=== PATIENT | female | born 1980 | race Hispanic/Latino ===

== ENCOUNTER 2017-06-03 22:16 | Inpatient (IN) | payer BC, OTHER ==
[2017-06-03 22:55] VITALS: BMI 25.4
[2017-06-03] MEDS ORDERED: Bicitra 30 ML UD PO ONE (22:55)
[2017-06-03 23:43] LABS: BASO # 0.1 K/uL (0.0-0.2); BASO % 0.6 % (0.0-2.0); EOS # 0.1 K/uL (0.0-0.7); EOS % 1.2 % (0.0-4.0); HEMATOCRIT 37.1 % (34.0-47.0); LYMPH # 1.8 K/uL (1.0-4.3); LYMPH % 17.7 % (20.0-40.0); MEAN CELL VOLUME 78.2 fl (81.0-99.0); MEAN CORPUSCULAR HEMOGLOBIN 24.8 pg (27.0-31.0); MEAN CORPUSCULAR HGB CONC 31.8 g/dL (33.0-37.0); MEAN PLATELET VOLUME 9.2 fl (7.2-11.7); MONO # 0.7 K/uL (0.0-0.8); MONO % 7.2 % (0.0-10.0); NEUT # 7.3 K/uL (1.8-7.0); NEUT % 73.3 % (50.0-75.0); NRBC % 0.1 % (0.0-0.0); RED CELL DISTRIBUTION WIDTH 15.8 % (11.5-14.5)
--- NOTE | 2017-06-03 23:44 | OBPN ---
Datetime: 06/03/2017 23:29 Vital Signs Provider: Reviewed; Within Normal Limits NICHD Decel Fetus A IP Provider: None Datetime: 06/03/2017 23:20 IP Progress Impression: Normal progression of labor; Reassuring heart rate IP Informed Consent Obtain: Vaginal Delivery; Risks, Benefits and Alternatives Discussed IP Progress Plan: Deliver- Section Pool Provider: Negative Membranes, Provider: Intact FHR - Baseline A Provider: 135 IP Fetus A Comments: One decel noted with CTX Presentation-Admit: Vertex IP Progress Note Comment: A: IUP at 38w IUP at 38w Previous C/S x 1 in labor' declined PLAN: admit to L_D Informed consent obtianed for C/S and possible transfusion Pre for C/S NICHD Accel Fetus A IP Provider: [id number] FHR Category Provider Fetus A: Category I NICHD Variability Prov Fetus A: Moderate 6-25bpm Dilatation, Provider: 2 Effacement, Provider: 50 Station, Provider: 1
[2017-06-03] MEDS ORDERED: ceFAZolin 2 GM in Sodium Chloride 0.9% 100 ML IVPB ONE (23:53)
[2017-06-03] MEDS: Lactated Ringer's 1,000 ML IV SCH (23:55)
[2017-06-04] MEDS ORDERED: Phenylephrine 10 mg/ml Inj ONE (00:13)
[2017-06-04] MEDS ORDERED: Morphine 1 mg/ml preservative-free Inj(Duramorph) ONE (00:13)
[2017-06-04] MEDS ORDERED: ePHEDrine 50 mg/ml Inj ONE (00:13)
[2017-06-04] MEDS ORDERED: Oxytocin 30 units/LR 500ML 30 U/500 ML BAG IV ONE (00:53)
[2017-06-04] MEDS ORDERED: Absorbable Gelatin Sponge Size 12-7 ONE ×2 (01:07→01:15)
--- NOTE | 2017-06-04 01:56 | OBHP ---
Datetime: 06/03/2017 23:20 IP Fetus A Comments: One decel noted with CTX Datetime: 06/03/2017 23:10 Admit Comment, IP Provider: 36 y/o F , 38 weeks GA, BRITTANY 06/16/17, with PSH of on 2014 c omes to the [facility] c/o CTX and pain. denies nausea, vomiting, SOB and chest pain - good movement, no LOF/BV PNI: no issues with this so far PNL: GBS+ and abnormal PAP smear PMH: none PSH: 2014 Allg: none Meds: PNV + Amoxicillin OBGYN: SH: no smoking or alcohol use ROS: as per HPI VS: stable 133/66 FHR: 137 PE: unremarkable A/P:36 y/o F , 38 weeks GA, BRITTANY 06/16/17, with PSH of on 2014 comes to the [facility] c/o C TX and pain. early labor - monitor VS - reassuring FHT - admit pt to L_D - today - protocol initiated case discussed with Dr. Arriaga --- Gregory Church, PGY-1 OB Hospitalist note: This pt was seen and examined by me. Agree with above note. MAHNDO Pelvic Type - PN: Adequate Extremities - PN: Normal Abdomen - PN: Normal Back - PN: Normal Breast - PN: Normal Lungs - PN: Normal Heart - PN: Normal Thyroid - PN: Normal Neurologic - PN: Normal HEENT - PN: Normal General - PN: Normal Comments, ACOG Physical Exam: ROS: General: no weakness; no fatigue HEENT: no ARCINIEGA; no visual dist CV: no palpitations; no no CP GI: no N/V no diarhea No epigastric pain; non radiating : no F/U/D MS: No joint pain IP Hx Assessment: The History has been Reviewed and is Current EGA AdmitDate IP: 38.1 Vital Signs Provider: Reviewed; Within Normal Limits IP Indication for Induction: Not Applicable IP Chief Complaint: Uterine contractions NICHD Accel Fetus A IP Provider: 15X15 FHR Category Provider Fetus A: Category I NICHD Decel Fetus A IP Provider: None Effacement, Provider: 50 Genitourinary Exam: Normal DTRs - PN: Normal Datetime: 06/03/2017 23:02 IP Adm Impression: Term, intrauterine ; Intact Membranes IP Admit Plan: Admit to unit; Initiate Section protocol Presentation-Admit: Vertex FHR - Baseline A Provider: 135 Membranes, Provider: Intact Contraction Comments Provider: + Pool Provider: Negative NICHD Variability Prov Fetus A: Moderate 6-25bpm Dilatation, Provider: 2 Station, Provider: -1
[2017-06-04] MEDS ORDERED: DiphenhydrAMINE 50 mg/ml Inj IVP PRN (02:21)
[2017-06-04] MEDS: Lactated Ringer's 1,000 ML IV SCH ×3 (02:28→15:47)
[2017-06-04] MEDS: Multivitamin With Minerals Tab PO SCH (09:42)
[2017-06-04] MEDS: Simethicone 80 mg Chewtab PO SCH ×3 (09:45→22:30)
[2017-06-05] MEDS: Oxycodone/Acetaminophen 5/325 mg Tab PO PRN ×4 (05:40→20:23)
[2017-06-05] MEDS: Multivitamin With Minerals Tab PO SCH (08:34)
[2017-06-05] MEDS: Simethicone 80 mg Chewtab PO SCH ×3 (09:08→21:22)
[2017-06-05 09:22] LABS: HEMATOCRIT 33.1 % (34.0-47.0); MEAN CELL VOLUME 77.4 fl (81.0-99.0); MEAN CORPUSCULAR HEMOGLOBIN 25.3 pg (27.0-31.0); MEAN CORPUSCULAR HGB CONC 32.7 g/dL (33.0-37.0); RED CELL DISTRIBUTION WIDTH 15.6 % (11.5-14.5); WHITE BLOOD COUNT 14.6 K/uL (4.8-10.8)
--- NOTE | 2017-06-05 12:22 | OBPPN ---
Datetime: 06/05/2017 12:16 PP Pain Prov: Within normal limits PP Nausea Prov: Denies PP Flatus Prov: Yes PP BM Prov: No PP Breasts Prov: Normal PP Heart Prov: Normal PP Lungs Prov: Normal PP Abdomen/Uterus Prov: Normal PP Lochia Prov: Normal PP Vulva/Perineum Prov: Normal PP CVA Tenderness Prov: Normal PP Extremities Prov: Normal PP Comments Phys Exam Prov: Incision clean, dry, intact No erythema, swelling, induration Uterus firm, below umbilicus No deep calf tenderness bilaterally PP Impression Prov: Normal progression PP Plan Prov: Continue present management PP Progress Note Prov: Postop day #1 status post repeat , patient recovering well Postop CBC Regular diet Out of bed, ambulate Luo out, void check Pain control IP PP Procedures: None Vital Signs Provider PP: Reviewed; Within Normal Limits
[2017-06-06] MEDS: Oxycodone/Acetaminophen 5/325 mg Tab PO PRN (01:20)
[2017-06-06] MEDS: Simethicone 80 mg Chewtab PO SCH ×4 (04:30→21:55)
--- NOTE | 2017-06-06 07:33 | OBDS ---
DELIVERY PERSONNEL Delivery Doctor: Trice Arriaga DO Vp Legal Affairs: Bob Bentley RN Anesthesiologist: Marcos CARLOS MATERNAL INFORMATION Delivery Anesthesia: Spinal Medications in Delivery: oxytocin 30 units/500cc LR Estimated Blood Loss (ml): 800 Placenta Cultured: No Maternal Complications: None Provider Comments: PreOp Dx IUP at 38+w; previous C/S x 1(declined ) in early labor PostOp Dx same Procedure: Repeat LTCS via previous Pfannenstiel incision Surgeon Dr Arriaga Asst Dr CarrilloMendoza Anesth Dr Cartwright Anest: spinal Findings: live male delivered from [facility] presentation 9,9 One loose nuchal cord Clear AF Placenta deliveed intact manually Uterus not exteriorized Ovaries and fallopian tubes WNL EBL 800cc All equipment sponges and needles accounted for She remained stable and transferred to recovery room in stable condition LABOR SUMMARY EDC: 06/16/2017 00:00 No. Babies in Womb: 1 Attempted: No Labor Anesthesia: None LABOR INFORMATION Reason for Induction: Not Applicable Onset of Labor: 06/03/2017 19:00 Oxytocin: N/A Group B Beta Strep: Positive Antibiotics # of Doses: 0 Steroids Given: None Reason Steroids Not Administered: Not Applicable MEMBRANES Membranes Rupture Method: Artificial Rupture of Membranes: 06/04/2017 00:52 Length of Rupture (hrs): 0.00 Amniotic Fluid Color: Clear Amniotic Fluid Amount: Moderate STAGES OF LABOR Stage 3 hrs: 0 Stage 3 min: 1 Total Time in Labor hrs: -18 Total Time in Labor min: -7 CSECTION DELIVERY Primary Indication: Other Other Primary Indication: Repeat in labor Secondary Indication: N/A CSection Urgency: Non Elective CSection Incidence: Repeat Labor: Labor Elective: Nonelective CSection Incision: Lower Uterine Transverse Uterine Closure: Double-layer closure BABY A INFORMATION Delivery Date/Time: 06/04/2017 00:52 Method of Delivery: Born in Route : No : N/A Forceps: N/A Vacuum Extraction: N/A Shoulder Dystocia : No SHOULDER DYSTOCIA BABY A Infant Delivery Date/Time: 06/04/2017 00:52 PRESENTATION/POSITION BABY A Presentation: Cephalic Cephalic Presentation: Vertex Breech Presentation: N/A PLACENTA INFORMATION BABY A Placenta Delivery Time : 06/04/2017 00:53 Placenta Method of Delivery: Manual Removal Placenta Status: Delivered SCORES BABY A Heart Rate 1 min: >100 bpm Resp Effort 1 min: Good Cry Reflex Irritability 1 min: Cough or Sneeze or Pulls Away Muscle Tone 1 min: Active Motion Color 1 min: Body [place], Extremities Blue SCORE 1 MIN: 9 Heart Rate 5 min: >100 bpm Resp Effort 5 min: Good Cry Reflex Irritability 5 min: Cough or Sneeze or Pulls Away Muscle Tone 5 min: Active Motion Color 5 min: Body [place], Extremities Blue SCORE 5 MIN: 9 INFANT INFORMATION BABY A Gestational Age at Delivery: 38.2 Gestational Status: Term Outcome : Liveborn Condition : Stable Infant Sex: Male IDENTIFICATION/MEDS BABY A ID Band Location: Left Leg; Left Arm WEIGHT/LENGTH BABY A Birthweight (gms): 2930 Weight (lb): 6 Weight (oz): 7 CORD INFORMATION BABY A No. Cord Vessels: 3 Nuchal Cord : Around Neck x1, Loose Cord Blood Taken: Yes Infant Suction: Mouth; Nose
[2017-06-06] MEDS: Multivitamin With Minerals Tab PO SCH (10:39)
--- NOTE | 2017-06-06 17:53 | OBPPN ---
Datetime: 06/06/2017 12:49 PP Pain Prov: Within normal limits PP Nausea Prov: Denies PP Flatus Prov: Yes PP Breasts Prov: Normal PP Heart Prov: Normal PP Lungs Prov: Normal PP Abdomen/Uterus Prov: Normal PP Lochia Prov: Normal PP Vulva/Perineum Prov: Normal PP CVA Tenderness Prov: Normal PP Extremities Prov: Normal PP Comments Phys Exam Prov: FUndus firm under umbilicus PP Impression Prov: Normal progression PP Plan Prov: Continue present management PP Progress Note Prov: Patient denies CP, no SOB, no N/V, tolerating PO diet, ambulating/voiding wel l, mild lochia, abdominal pain tolerable with meds, +flatus A/P POD #2 1. Continue reg diet 2. Percocet/MOtrin prn pain 3. Encourage ambulation/ 4. Continue all other routine postop orders IP PP Procedures: None Vital Signs Provider PP: Reviewed; Within Normal Limits
[2017-06-07] MEDS: Simethicone 80 mg Chewtab PO SCH ×2 (04:47→10:47)
--- NOTE | 2017-06-07 09:37 | OBDCSUM ---
Datetime: 06/07/2017 09:35 Discharged to, Provider: Home Follow up at, Provider: Beth Disch Instr Activity: Normal activity Disch Instr Diet: Regular Discharge Instructions, Provider: Routine instructions given Discharge Diagnosis, Provider: Term Delivered Follow up in weeks, Provider: 1-2w Disch Referrals: None Contraception discussed, Prov: Yes Disch Activity Restrictions: No lifting; No sexual activity; Nothing in vagina - [place], tampon s, douche
--- NOTE | 2017-06-07 09:38 | OBPPN ---
Datetime: 06/07/2017 09:33 PP Pain Prov: Within normal limits PP Nausea Prov: Denies PP Flatus Prov: Yes PP BM Prov: Yes PP Breasts Prov: Normal PP Heart Prov: Normal PP Lungs Prov: Normal PP Abdomen/Uterus Prov: Normal PP Lochia Prov: Normal PP Vulva/Perineum Prov: Normal PP CVA Tenderness Prov: Normal PP Extremities Prov: Normal PP C/S Incision Prov: Normal PP Progress Prov: Normal PP Impression Prov: Normal progression PP Plan Prov: Discharge PP Progress Note Prov: She had BM yesterday and today. Ambulating well. Tolerating diet A: S/P C/S day 3 PLAN: discharge home and follwo up in 1-2w Vital Signs Provider PP: Within Normal Limits
[2017-06-07] MEDS: Multivitamin With Minerals Tab PO SCH (10:44)
[2017-06-07 22:19] VITALS: BP 93/66; PULSE 76; RESP 20; TEMP 98.9; O2SAT 98
--- NOTE | 2017-06-08 02:28 | OP ---
PROCEDURE DATE: 06/04/2017 PREOPERATIVE DIAGNOSES: Intrauterine at 38 plus weeks' gestation, previous section x1, declining vaginal after section and an early labor. POSTOPERATIVE DIAGNOSIS: Intrauterine at 38 plus weeks' gestation, previous section x1, declining vaginal after section and an early labor. PROCEDURE: Repeat low transverse section via previous Pfannenstiel incision. SURGEON: Dr. Valentin Arriaga. COMPUTED TOMOGRAPHY TECHNOLOGIST: Dr. Jeovany Mendoza (Dr. Jeovany Mendoza is a board certified [employer] physician who happened to be in Labor and Delivery and was available to assist on this difficult case. His presence was vital and necessary throughout the procedure. He was present during the time from incision to delivery to closure of the skin). ANESTHESIA ADMINISTERED BY: Dr. Cartwright. TYPE OF ANESTHESIA: Spinal. OPERATIVE FINDINGS: Live male delivered from a cephalic presentation, score of 9 and 9 given at 1 and 5 minutes respectively, one loose nuchal cord noted, clear amniotic fluid noted, placenta was delivered and intact manually. Uterus was not exteriorized. Ovaries and fallopian tubes were within normal limits upon gross inspection. ESTIMATED BLOOD LOSS: 800 mL All equipments, sponge, and needles accounted for. She remained hemodynamically stable and transferred to the recovery room in stable condition. DESCRIPTION OF PROCEDURE: The patient was brought to the operating room. After successful spinal anesthesia by Dr. Cartwright, she was placed in supine position. Compression boots were placed on both lower extremities after a Luo catheter was placed into the urethra and into the bladder and noted to be draining clear urine. She was then draped and prepped in the usual sterile manner. Once adequate anesthesia was obtained, previous surgical scar was removed using a scalpel. Incision was then taken down to underlying fascia using electrocautery. Fascia was nicked in the midline and extended bilaterally using electrocautery. Inferior aspect of the fascia was grasped using 2 Isabell clamps and tented up and the rectus muscle was both bluntly and sharply . The same was done with the superior aspect of the fascia. In the midline superiorly, the rectus muscle was bluntly, peritoneum was identified, tented up using 2 Mindi clamps and this was incised and then extended superiorly and inferiorly with direct visualization of the bladder and intestines using Metzenbaum scissors. Bladder blade was inserted. Bladder flap was created by incising peritoneum on the uterus. Using Metzenbaum scissors and extending it bilaterally, bladder blade was inserted behind the bladder flap. A low transverse incision was made using scalpel. Upon entering the uterus clear amniotic fluid was noted. Incision was then extended bilaterally using band scissors. Thereafter, the 's head was delivered as atraumatically as possible, was bulb suctioned nasopharyngeally. One loose nuchal cord was noted and this was reduced successfully. The remainder of the infant was then delivered as atraumatically as possible. The was crying spontaneously. Cord was clamped and cut and the was handed to the manager rental in attendance. Cord bloods were obtained. Placenta was delivered intact manually. Because they were unable to exteriorize the uterus, this was left in place for repair. Skin incision was noted to be on the smaller side for this size uterus. The uterus was then cleared of debris and clots. Lower uterine segment was grasped using 2 clamps and these were identified, angles were grasped using 2 Allis clamps. Thereafter, 0 Vicryl suture was used closing the first layer of the uterus in interlocking fashion. Second layer of the uterus was closed using 0 Vicryl suture imbricating the first layer. Good hemostasis was assured. Irrigation was performed. Ovaries and tubes appeared to be within normal limits. All equipment was removed and accounted for. A 0 Vicryl suture was used to approximate the peritoneum. Rectus muscles was noted to have good hemostasis and 0 Vicryl suture was used to approximate the fascial layer in a running fashion. Irrigation was performed. Subcuticular layer was then approximated using 2-0 plain suture x3. Hemostasis assured, 3-0 Vicryl suture was used to approximate the skin. Dermabond, Steri-Strips and pressure bandage was applied. She tolerated the procedure well and was transferred to the recovery room in stable condition. All equipments, sponges, and needles accounted for. Valentin Arriaga DO 06/07/2017
== END 2017-06-07 17:30 | disposition home or self-care (01) | DRG 766 ==
LOC: H.EROB2 22:16 → H.L&D 22:55 → H.OB/GYN 06-04 04:15
PROVIDERS: ADMIT Obstetrics & Gynecology; ATTEND Obstetrics & Gynecology
PROC: 4A1HXCZ Monitoring of Products of Conception, Cardiac Rate, External Approach (ICD-10-PCS; 2017-06-03)
PROC: 10D00Z1 Extraction of Products of Conception, Low, Open Approach (ICD-10-PCS; principal; 2017-06-04)
DX: O34.211 Maternal care for low transverse scar from previous cesarean delivery (principal); N85.8 Other specified noninflammatory disorders of uterus; Z37.0 Single live birth; O69.81X0 Labor and delivery complicated by cord around neck, without compression, not applicable or unspecified; O99.824 Streptococcus B carrier state complicating childbirth; Z3A.38 38 weeks gestation of pregnancy